=== PATIENT | female | born 1970 | race Caucasian/White ===

== ENCOUNTER 2016-05-12 21:26 | Emergency (ER) | payer MEDICARE, OTHER ==
--- NOTE | ~2016-05-12 | EKG ---
PATIENT: NORY JACINTO UNIT #: [id number] Ventricular Rate: 84 BPM Atrial Rate: 84 BPM P-R Interval: 138 ms QRS Duration: 86 ms Q-T Interval: 400 ms QTC Calculation(Bezet): 472 ms P [place]: 27 degrees Calculated R [place]: -5 degrees Calculated T [place]: -11 degrees Diagnosis Line: Normal sinus rhythm Diagnosis Line: T wave abnormality, consider anterior ischemia Diagnosis Line: Prolonged QT Diagnosis Line: Abnormal ECG Diagnosis Line: When compared with ECG of 18-MAR-2016 06:05, Diagnosis Line: No significant change was found Diagnosis Line: Confirmed by MARCO ANTONIO RODRÍGUEZ MD ([id number]) on Diagnosis Line: 05/14/2016 4:05:42 PM INTERPRETING MD: MARCOS YOUSSEF
--- NOTE | ~2016-05-12 | CR72 ---
[facility] A Service of [facility] & [facility] RADIOLOGY TEXT RESULTS PATIENT: NORY JACINTO LOCATION: [facility] : 66 UNIT #: [id number] AGE: [address]: Vipul Yusuf MD SEX: F ORDER DR: [id number] [facility] [address] [place], [place] [address] [id number] E MR#: [id number] Acc #: [id number] NAME: NORY JACINTO. : 1970 SEX: F STUDY DATE/TIME: 05/12/2016 21:07 UNIT: [facility] ROOM: STUDY DESCRIPTION: CR Chest Single View Portable Attending Physician: Vipul Yusuf M.D. Ordering Physician: Vipul Yusuf M.D. Primary Care Physician: Shwetha Lai M.D. MEDICAL IMAGING REPORT This report is preliminary unless electronic signature is present EXAM Portable chest 05/12/2016 HISTORY Shortness of air and fever and cough since yesterday. FINDINGS Cardiac size and pulmonary vascularity are within normal limits. Sternotomy with mediastinal clips. No airspace infiltrates or effusions. Mild hyperinflation of both lungs. IMPRESSION No acute findings and no active disease. Prior cardiac surgery. Dictated by... Darci Guillaume M.D. THIS IS AN ELECTRONICALLY VERIFIED REPORT Darci Guillaume M.D. at 05/13/2016 2:20 PM ARIN/clementine TD: 05/13/2016 11:03 JOB #: [id number] MEDICAL IMAGING REPORT COPY
[2016-05-12 21:02] LABS: INFLUENZA A POS (NEG); INFLUENZA B NEG (NEG)
[2016-05-12 21:05] LABS: POC - CKMB <1.0 ng/mL (0.0-7.9); POC - TROPONIN <0.05 ng/mL (<=0.05)
[2016-05-12 21:05] LABS: BASOPHIL% 0.4 % (0-2.5); EOSINOPHIL% 0.7 % (0.0-7.0); HEMATOCRIT 35.3 % (35.0-45.0); HEMOGLOBIN 11.7 gm/dL (12.0-16.0); LYMPHOCYTE# 1.6 X10e3 (1.0-3.5); LYMPHOCYTE% 28.9 % (17.0-45.0); MEAN CELL VOLUME 92.7 FL (83-96); MEAN CORPUSCULAR HEMOGLOBIN 30.6 PG (28-34); MEAN PLATELET VOLUME 7.7 FL (6.5-11.5); MONOCYTE# 1.3 X10e3 (0-1.0); MONOCYTE% 23.1 % (3.0-12.0); NEUTROPHIL# 2.6 X10e3 (1.5-7.1); NEUTROPHIL% 46.9 % (40-75); PLATELET COUNT 207 X10e3 (140-420); RED CELL DISTRIBUTION WIDTH 15.8 % (11.0-15.5); WHITE BLOOD COUNT 5.6 X10e3 (4.0-10.5)
[2016-05-12 21:06] LABS: DIFF IND YES
[2016-05-12 21:11] LABS: PLATELET ESTIMATE NORMAL (NORMAL)
[2016-05-12 21:12] LABS: RBC NORMAL YES
[~2016-05-12 21:26] MED LIST: ACETAMINOPHEN650 M4 PO; ACID REDUCER150 MG PO; ALBUTEROL 0.5ML INH; ALBUTEROL17 GM INH; AMLODIPINE BES2.5 MG PO; ASPIRIN EC81 M1 PO; ASPIRIN PO; ASPIRIN81 M2 PO; ASPIRIN81 MG PO; ATROVENT HFA12.9 G1 IH; AZITHROMYCIN250 MG PO; BAYER ASPIRIN325 M1 PO; BAYER CHEWABLE81 MG PO; BENADRYL; BENZONATATE PO; BRISDELLE7.5 MG PO; CARVEDILOL3.125 MG PO; CHEWABLE ASPIRI81 MG PO; CLOPIDOGREL BIS75 MG PO; CLOPIDOGREL75 MG PO; DESYREL150 M1 PO; DIAZEPAM PO; DIAZEPAM2 MG PO; DICYCLOMINE HCL20 MG PO; DOXYCYCLINE MO100 MG PO; EFFEXOR XR150 MG PO; EFFEXOR-XR150 MG PO; EFFEXOR100 MG PO; EFFEXOR50 MG PO; FISH OIL 1,001000 M1 PO; FISH OIL300 MG PO; GABAPENTIN300 MG PO; GLUCOPHAGE500 M1 PO; GLUCOTROL PO; HYDROCODON-ACE1 EAC7 PO; IMDUR PO; KETOPROFEN PO; KLONOPIN0.5 MG PO; LANSOPRAZOLE15 MG PO; LIORESAL10 MG PO; LIPITOR20 MG PO; LISINOPRIL10 MG PO; LISINOPRIL2.5 MG PO; LISINOPRIL20 MG PO; LISINOPRIL5 MG PO; LOPRESSOR PO; LYRICA100 MG PO; LYRICA50 MG PO; MEDI-MECLIZINE25 M1 PO; MEDROL4 MG/DOSE- PO; MELATONIN5 M1 PO; MELOXICAM15 MG PO; METFORMIN HCL500 M1 PO; METOPROLOL SUCC50 MG PO; METOPROLOL TAR25 MG PO; METOPROLOL TART25 MG PO; MOBIC PO; MUCUS RELIEF C400 MG PO; NEURONTIN300 MG PO; NITROGLYCERIN0.4 MG SL; NITROGLYGERIN0.4 MG SL; NITROSTAT0.4 MG SL; NTG 0.4 MG/0.4 MG/M1 SL; OMEGA 3 FISH OI1 CAP PO; OMEGA-3 + D SO1 EACH PO; OXYCODON HCL-AP1 TA2 PO; OXYCODON-ACETA1 EAC1 PO; OXYCODONE HCL10 MG PO; OXYCODONE-APAP1 EAC5 PO; PANTOPRAZOLE SO40 MG PO; PERCOCET 7.5-31 EACH PO; PLAVIX PO; PRAVACHOL20 MG PO; PRAVASTATIN SOD20 MG PO; PREMARIN VAG CR45 GM MC; PREVACID15 MG PO; PROVENTIL INH; PROVENTIL INH0.5 ML HHN; RANEXA500 MG PO; REFRESH5 ML OU; SERTRALINE HCL100 MG PO; SPIRIVA18 MCG INH; SYMBICORT INH; TIZANIDINE HCL4 M1 PO; TOPAMAX50 MG DOB; TOPIRAMATE100 MG PO; TOPIRAMATE200 M1 PO; TOPROL XL PO; TROKENDI XR100 MG PO; VITAL-D RX TABL1 TAB PO; VITAMIN D1000 UNI1 PO; VITAMIN D1000 UNI2 PO; VITAMIN D1000 UNIT PO; ZANTAC300 MG PO; ZESTRIL2.5 M1 PO; ZETIA PO; ZOLOFT PO; ZOLOFT100 MG PO; [UNRECOGNIZED DRUG - OTHER] OU
[2016-05-12 21:41] LABS: ALBUMIN SERUM 3.5 g/dL (3.5-5.0); ALKALINE PHOSPHATASE 146 U/L (32-92); ALT (SGPT) 61 U/L (10-40); AST (SGOT) 49 U/L (10-42); BILIRUBIN, DIRECT 0.1 mg/dL (0.0-0.2); BILIRUBIN,INDIRECT 0.3 mg/dL (0.0-0.9); BILIRUBIN,TOTAL 0.4 mg/dL (0.2-2.0); BLOOD UREA NITROGEN 9 mg/dL (9-23); BUN/CREATININE RATIO 12.85; CALCIUM SERUM 8.3 mg/dL (8.4-10.2); CARBON DIOXIDE 21 mmol/L (22-31); CHLORIDE 109 mmol/L (100-111); CREATININE SERUM 0.7 mg/dL (0.6-1.4); GLOM FILT RATE Estimated ABOVE60 mL/min (>60); GLUCOSE FASTING 111 mg/dL (70-110); POTASSIUM 3.2 mmol/L (3.5-5.1); PROTEIN TOTAL SERUM 6.6 g/dL (6.0-8.3); SODIUM 137 mmol/L (135-145)
== END 2016-05-12 22:02 | disposition home or self-care (01) ==
LOC: CED 21:26
PROVIDERS: Emergency Medicine
DX: J44.9 Chronic obstructive pulmonary disease, unspecified (principal); E87.6 Hypokalemia; J09.X2 Influenza due to identified novel influenza A virus with other respiratory manifestations; E11.9 Type 2 diabetes mellitus without complications; K21.9 Gastro-esophageal reflux disease without esophagitis; E78.5 Hyperlipidemia, unspecified; I10 Essential (primary) hypertension; I25.10 Atherosclerotic heart disease of native coronary artery without angina pectoris; Z90.49 Acquired absence of other specified parts of digestive tract; Z88.5 Allergy status to narcotic agent; Z79.899 Other long term (current) drug therapy
CPT/HCPCS: 36415; 71010; 80048; 80076; 82553; 84484; 85025; 87804; 93005; 94640; 96361; 96374; 96375; 99284; J2405; J2765; J2930

== ENCOUNTER → 2016-06-04 | Outpatient (CLI) | payer MEDICARE, OTHER ==
[~2016-06-04] MED LIST changes: +BELSOMRA10 MG PO; +COREG3.125 MG PO; +EZETIMIBE10 MG PO; +FORTAMET500 MG PO; +GABAPENTIN300 M2 PO; +GLUCOPHAGE500 MG PO; +HYDROCODON-ACE1 EAC5 PO; +ISOSORBIDE DINI30 MG PO; +ISOSORBIDE MONO30 M1 PO; +KEPPRA500 M2 PO; +NORVASC2.5 MG PO; +OMEGA 3 1,0001 EACH PO; +QUDEXY XR100 MG PO; +REFRESH OPTIVE1 EACH OU; +TRAMADOL HCL50 M1 PO; +TROKENDI XR200 MG PO; +VENLAFAXINE HC225 MG PO; +YUVAFEM10 MCG; +YUVAFEM10 MCG VAG
--- NOTE | ~2016-06-04 | MY11 ---
[facility] A Service of [facility] RADIOLOGY TEXT RESULTS PATIENT: NORY JACINTO LOCATION: [facility] : 66 UNIT #: [id number] AGE: [address]: Shwetha Lai MD SEX: F ORDER DR: [id number] [facility] [address] [place], [place] [address] [id number] O MR#: [id number] Acc #: [id number] NAME: NORY JACINTO. : 1970 SEX: F STUDY DATE/TIME: 06/04/2016 12:34 UNIT: [facility] ROOM: STUDY DESCRIPTION: MY Mammogram Screening Dig Jose Attending Physician: Shwetha Lai M.D. Referring Physician: Shwetha Lai M.D. Ordering Physician: Shwetha Lai M.D. Primary Care Physician: Shwetha Lai M.D. MEDICAL IMAGING REPORT This report is preliminary unless electronic signature is present EXAM Digital screening mammogram 06/04/2016, [facility] HISTORY 45-year-old woman no risk elevation. Annual screen. COMPARISON 12/13/2013 with a followup left breast 01/27/2014 and 08/15/2014. Bilateral diagnostic mammogram 04/21/2015. FINDINGS Digital imaging of each breast was completed utilizing a two-view examination of each breast in craniocaudal and mediolateral-oblique projections. Review and interpretation of digital mammograms include a second review in conjunction with FDA-approved CAD device. There is a normal parenchymal presentation bilaterally consistent with the patient's age. There are no breast masses imaged and no parenchymal asymmetry is visualized. There are no suspicious microcalcifications and I see no focal architectural disturbance. IMPRESSION Negative screening digital mammogram. One-year followup recommended. Patients over the age of 40 are entered into a reminder system with target due date for the next mammogram. A result letter will also be sent to the patient. BIRADS: 1 Negative Dictated by... Ollie Warren M.D. [facility] A Service of [facility] RADIOLOGY TEXT RESULTS PATIENT: NORY JACINTO LOCATION: [facility] : 66 UNIT #: [id number] AGE: [address]: Shwetha Lai MD SEX: F ORDER DR: THIS IS AN ELECTRONICALLY VERIFIED REPORT Ollie Warren M.D. at 06/04/2016 3:01 PM KRYSTINA/rico TD: 06/04/2016 14:37 JOB #: [id number] MEDICAL IMAGING REPORT Page 1 of 1 COPY
== END | disposition home or self-care (01) ==
LOC: CWCC 11:58
DX: Z12.31 Encounter for screening mammogram for malignant neoplasm of breast (principal)
CPT/HCPCS: G0202

== ENCOUNTER 2016-07-01 11:18 | Emergency (ER) | payer MEDICARE, OTHER ==
[2016-07-01 10:30] LABS: BASOPHIL# 0.1 X10e3 (0-0.3); BASOPHIL% 0.5 % (0-2.5); EOSINOPHIL# 0.3 X10e3 (0-0.7); EOSINOPHIL% 2.8 % (0.0-7.0); HEMATOCRIT 40.2 % (35.0-45.0); LYMPHOCYTE# 4.1 X10e3 (1.0-3.5); LYMPHOCYTE% 37.5 % (17.0-45.0); MEAN CELL VOLUME 92.5 FL (83-96); MEAN CORPUSCULAR HEMOGLOBIN 29.9 PG (28-34); MEAN CORPUSCULAR HGB CONC 32.3 g/dL (30-36); MEAN PLATELET VOLUME 8.1 FL (6.5-11.5); MONOCYTE# 1.2 X10e3 (0-1.0); MONOCYTE% 10.7 % (3.0-12.0); NEUTROPHIL# 5.3 X10e3 (1.5-7.1); NEUTROPHIL% 48.5 % (40-75); PLATELET COUNT 254 X10e3 (140-420); RED BLOOD COUNT 4.34 X10e (3.90-5.30); RED CELL DISTRIBUTION WIDTH 15.2 % (11.0-15.5)
[2016-07-01 10:45] LABS: DIFF IND NO
[2016-07-01 10:53] LABS: BLOOD UREA NITROGEN 13 mg/dL (9-23); BUN/CREATININE RATIO 16.25; CALCIUM SERUM 8.9 mg/dL (8.4-10.2); CARBON DIOXIDE 25 mmol/L (22-31); CHLORIDE 108 mmol/L (100-111); CREATININE SERUM 0.8 mg/dL (0.6-1.4); GLOM FILT RATE Estimated 87.9 mL/min (>60); GLUCOSE FASTING 94 mg/dL (70-110); POTASSIUM 4.3 mmol/L (3.5-5.1); SODIUM 140 mmol/L (135-145)
[2016-07-01 10:54] LABS: ALCOHOL BLOOD <5 mg/dL (0)
[~2016-07-01 11:18] MED LIST changes: -BELSOMRA10 MG PO; -COREG3.125 MG PO; -EZETIMIBE10 MG PO; -FORTAMET500 MG PO; -GABAPENTIN300 M2 PO; -GLUCOPHAGE500 MG PO; -HYDROCODON-ACE1 EAC5 PO; -ISOSORBIDE DINI30 MG PO; -ISOSORBIDE MONO30 M1 PO; -KEPPRA500 M2 PO; -NORVASC2.5 MG PO; -OMEGA 3 1,0001 EACH PO; -QUDEXY XR100 MG PO; -REFRESH OPTIVE1 EACH OU; -TRAMADOL HCL50 M1 PO; -TROKENDI XR200 MG PO; -VENLAFAXINE HC225 MG PO; -YUVAFEM10 MCG; -YUVAFEM10 MCG VAG
[2016-07-01 11:22] LABS: AMPHETAMINE NEG (NEG); BARBITURATES NEG (NEG); BENZODIAZEPINES POS (NEG); COCAINE NEG (NEG); MARIJUANA NEG (NEG); OPIATES NEG (NEG); TRICYCLIC ANTIDEPRESSANTS NEG (NEG); U METHADONE NEG (NEG)
[2016-07-03] MEDS ORDERED: TRAMADOL HCL50 M1 PO (10:18)
[2016-07-03] MEDS ORDERED: YUVAFEM10 MCG (10:19)
== END 2016-07-06 07:05 | disposition home or self-care (01) ==
LOC: CED 11:18
PROVIDERS: Emergency Medicine
DX: R56.9 Unspecified convulsions (principal); E11.9 Type 2 diabetes mellitus without complications; I25.10 Atherosclerotic heart disease of native coronary artery without angina pectoris; Z88.0 Allergy status to penicillin; Z79.899 Other long term (current) drug therapy
CPT/HCPCS: 36415; 80048; 80307; 82947; 85025; 99283; G0480

== ENCOUNTER → 2016-07-03 | Day surgery (SDC) | payer MEDICARE, OTHER ==
[~2016-07-03] MED LIST changes: +BELSOMRA10 MG PO; +COREG3.125 MG PO; +EZETIMIBE10 MG PO; +FORTAMET500 MG PO; +GABAPENTIN300 M2 PO; +GLUCOPHAGE500 MG PO; +HYDROCODON-ACE1 EAC5 PO; +ISOSORBIDE DINI30 MG PO; +ISOSORBIDE MONO30 M1 PO; +KEPPRA500 M2 PO; +NORVASC2.5 MG PO; +OMEGA 3 1,0001 EACH PO; +QUDEXY XR100 MG PO; +REFRESH OPTIVE1 EACH OU; +TRAMADOL HCL50 M1 PO; +TROKENDI XR200 MG PO; +VENLAFAXINE HC225 MG PO; +YUVAFEM10 MCG; +YUVAFEM10 MCG VAG
--- NOTE | ~2016-07-03 | OR ---
Unit #: [id number] #: [id number] Patient: NORY JACINTO [id number] [address] [id number] O MR#: [id number] NAME: NORY JACINTO. ROOM: Date of Procedure: 07/03/2016 Admission Date: 07/03/2016 Surgeon: Kranthi Garces M.D. : 1970 Attending Physician: Kranthi Garces M.D. Referring Physician: Kranthi Garces M.D. Primary Care Physician: Shwetha Wallace M.D. OPERATIVE REPORT JOB NOTE: CC: DR. WALLACE PROCEDURE PERFORMED Esophagogastroduodenoscopy with balloon dilatation. INDICATIONS FOR PROCEDURE The patient with dysphagia, history of esophageal rings dilated last year, now with recurrent symptoms. MEDICATIONS Monitored anesthesia. POSTOPERATIVE FINDINGS 1. 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 Dilation carried out with a balloon to 20 mm. 2. 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 3. Normal stomach. 4. Normal duodenum and distal duodenum. PLAN Continue PPI therapy. Repeat dilation based on symptoms. May try muscle relaxants. DESCRIPTION OF PROCEDURE The patient was explained of the procedure, risks, and benefits along with risks and benefits of anesthesia. She was brought to the endoscopy room. Propofol anesthesia was given. Bite block was placed. The scope was passed down the mouth into the esophagus, stomach, duodenum, and distal duodenum. Findings as described. Dilation carried out successfully. Gently, the scope was pulled out. She tolerated it well. Dictated by... Manny Baldwin/alejandra TD: 07/03/2016 23:56 JOB #: [id number] Unit #: [id number] #: [id number] Patient: NORY JACINTO OPERATIVE REPORT Page 1 of 1 X Kranthi Garces MD X PROCEDURE OPERATIVE NOTE
== END | disposition home or self-care (01) ==
LOC: COPS 08:56
DX: K22.2 Esophageal obstruction (principal); I85.00 Esophageal varices without bleeding; E11.9 Type 2 diabetes mellitus without complications
CPT/HCPCS: 82947

== ENCOUNTER → 2016-07-26 | Outpatient (CLI) | payer MEDICARE, OTHER ==
--- NOTE | ~2016-07-26 | MR122 ---
[facility] A Service of [facility] & [facility] RADIOLOGY TEXT RESULTS PATIENT: NORY JACINTO [facility] UNIT #: [id number] AGE: [address]: Theo Mathur II, MD SEX: F ORDER DR: [id number] [facility] [address] [place], [place] [address] [id number] O MR#: [id number] Acc #: [id number] NAME: NORY JACINTO : 1970 SEX: F STUDY DATE/TIME: 07/26/2016 8:50 UNIT: [facility] ROOM: STUDY DESCRIPTION: MR MRA Head Wo Contrast Attending Physician: Theo Mathur II., M.D. Referring Physician: Theo Mathur II., M.D. Ordering Physician: Theo Mathur II., M.D. Primary Care Physician: Shwetha Lai M.D. MRI CENTER REPORT This report is preliminary unless electronic signature is present. EXAM MR angiogram intracranial HISTORY Vision loss. Visual disturbance for a year, getting worse. Abnormal exam per patient in May. Numbness and tingling all over body a week ago. Chronic headache. FINDINGS MR angiography performed kashia of Rey vasculature without contrast. There is no previous. There is no intracranial vascular cutoff. Some irregularity of signal intensity is noted which could be real or artifactual. This includes some irregular signal loss in particular in the right A1 vessel and in the proximal left A2. Some irregularity in the proximal posterior cerebral artery distribution. Again, this could be real or artifactual. If real, this could be a manifestation with some intracranial atherosclerotic disease or vasculitis. If more information is needed for management purposes, this is best pursued with a CT angiogram. No intracranial aneurysm is suspected allowing for the technical limitation of MR angiography for assessment for small intracranial aneurysms. There is an anterior communicating artery present. Neither posterior communicator is definitely seen. IMPRESSION There are areas of irregular intracranial signal loss with details provided above. This includes the right A1 and left A2 vessels for example. This could be real or artifactual. If real, main consideration would be intracranial atherosclerotic disease versus vasculitis. If it would alter management, finding is best pursued with a CT angiogram to see if it is reproducible. There is no intracranial vascular cutoff and there [facility] A Service of [facility] & [facility] RADIOLOGY TEXT RESULTS PATIENT: NORY JACINTO LOCATION: [facility] : 66 UNIT #: [id number] AGE: [address]: Theo Mathur II, MD SEX: F ORDER DR: is no suspicion for a intracranial aneurysm on MR angiography. Dictated by... Rubia Ochoa M.D. THIS IS AN ELECTRONICALLY VERIFIED REPORT Rubia Ochoa M.D. at 07/29/2016 5:30 PM Jeremias TD: 07/29/2016 11:30 JOB #: [id number] MRI CENTER REPORT Page 1 of 1 COPY
--- NOTE | ~2016-07-26 | MR148 ---
[facility] A Service of [facility] & [facility] RADIOLOGY TEXT RESULTS PATIENT: NORY JACINTO LOCATION: [facility] : 66 UNIT #: [id number] AGE: [address]: Theo Mathur II, MD SEX: F ORDER DR: [id number] [facility] [address] [place], [place] [address] [id number] O MR#: [id number] Acc #: [id number] NAME: NORY JACINTO. : 1970 SEX: F STUDY DATE/TIME: 07/26/2016 8:49 UNIT: [facility] ROOM: STUDY DESCRIPTION: MR Orbit Face and or Neck WWo Attending Physician: Theo Mathur II., M.D. Referring Physician: Theo Mathur II., M.D. Ordering Physician: Theo Mathur II., M.D. Primary Care Physician: Shwetha Lai M.D. MRI CENTER REPORT This report is preliminary unless electronic signature is present. EXAM MRI of the orbits HISTORY: Visual loss, visual loss for a year and worsening. Abnormal examination in May per patient. Otherwise the type of visual disturbances not specified. COMMENT MRI of the orbits performed prior to and following intravenous administration of 15 mL MultiHance. Study is limited by motion despite use of motion limiting sequences. There is a separate brain MRI dictation. The globes are intact, lenses are located. Superior ophthalmic veins are symmetric. Lacrimal glands are unremarkable. Extraocular muscles are symmetric unremarkable. The retrobulbar fat is preserved. No gross pathologic enhancement allowing for the motion. Signal intensity of the optic nerves tracts and chiasm grossly within normal limits again allowing for the motion. Cavernous sinus region unremarkable. IMPRESSION 1. Study is significantly motion limited. Allowing for this no abnormality is appreciated. Please correlate further with the type of visual disturbance. Dictated by... Rubia Ochoa M.D. THIS IS AN ELECTRONICALLY VERIFIED REPORT Rubia Ochoa M.D. at 07/29/2016 5:29 PM LEVY/leeanna STS. [facility] A Service of [facility] & [facility] RADIOLOGY TEXT RESULTS PATIENT: NORY JACINTO LOCATION: [facility] : 66 UNIT #: [id number] AGE: [address]: Theo Mathur II, MD SEX: F ORDER DR: TD: 07/29/2016 10:35 JOB #: [id number] MRI CENTER REPORT Page 1 of 1 COPY
--- NOTE | ~2016-07-26 | MR134 ---
[facility] A Service of [facility] RADIOLOGY TEXT RESULTS PATIENT: NORY JACINTO LOCATION: [facility] : 66 UNIT #: [id number] AGE: [address]: Theo Mathur II, MD SEX: F ORDER DR: [id number] [place] [id number] [facility] [place], [place] [address] [id number] O MR#: [id number] Acc #: [id number] NAME: NORY JACINTO : 1970 SEX: F STUDY DATE/TIME: 07/26/2016 9:03 UNIT: [facility] ROOM: STUDY DESCRIPTION: MR MRA Neck Wo Contrast Attending Physician: Theo Mathur II., M.D. Referring Physician: Theo Mathur II., M.D. Ordering Physician: Theo Mathur II., M.D. Primary Care Physician: Shwetha Lai M.D. MRI CENTER REPORT This report is preliminary unless electronic signature is present. EXAM MR angiogram neck vessels. HISTORY Vision loss worsening over a year, episode of numbness and tingling whole body last week. Chronic headaches. TECHNIQUE MR angiography performed neck vessels without contrast. FINDINGS Study is motion limited. Allowing for this, there is probably not hemodynamically-significant narrowing at either carotid bifurcation. Both vertebral arteries are patent. Visualized portions left dominant. IMPRESSION There is significant motion limitation of the study. Allowing for this, there does not appear to be hemodynamically-significant narrowing at either carotid bifurcation. Both vertebral arteries patent visualized portions. Dictated by... Rubia Ochoa M.D. THIS IS AN ELECTRONICALLY VERIFIED REPORT Rubia Ochoa M.D. at 07/29/2016 5:30 PM LEVY/tanja TD: 07/29/2016 12:05 JOB #: [id number] [facility] A Service of [facility] / [facility] RADIOLOGY TEXT RESULTS PATIENT: NORY JACINTO LOCATION: [facility] : 66 UNIT #: [id number] AGE: [address]: Theo Mathur II, MD SEX: F ORDER DR: MRI CENTER REPORT Page 1 of 1 COPY
--- NOTE | ~2016-07-26 | MR17 ---
[facility] A Service of [facility] & [facility] RADIOLOGY TEXT RESULTS PATIENT: NORY JACINTO LOCATION: [facility] : 66 UNIT #: [id number] AGE: [address]: Theo Mathur II, MD SEX: F ORDER DR: [id number] [facility] [address] [place], [place] [address] [id number] O MR#: [id number] Acc #: [id number] NAME: NORY JACINTO. : 1970 SEX: F STUDY DATE/TIME: 07/26/2016 7:44 UNIT: [facility] ROOM: STUDY DESCRIPTION: MR Brain WWo Contrast Attending Physician: Theo Mathur II., M.D. Referring Physician: Theo Mathur II., M.D. Ordering Physician: Theo Mathur II., M.D. Primary Care Physician: Shwetha Lai M.D. MRI CENTER REPORT This report is preliminary unless electronic signature is present. EXAM MRI of the brain with and without. HISTORY Vision loss. Decreased vision for 1 year with worsening and chronic headaches, numbness and tingling all over her body a week ago. Abnormal eye examination in May. Vision changes in both eyes. History of cervical cancer. COMMENT MRI of the brain was performed prior to and following intravenous administration of 15 mL of MultiHance. There is a previous brain MRI from 07/05/2014. There is a separate dictation of the orbits. There is no evidence for a recent ischemic insult on the diffusion series. Incidental note is made of a partially empty sella. 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 There is no extraaxial fluid collection. The major intracranial flow voids are maintained. The mastoid air cells are clear. The paranasal sinuses are clear. Study is motion limited, despite use of motion limiting sequences. Allowing for this, there is mild white matter signal abnormality, most apparent in the periventricular white matter, probably essentially within the range of expected for age group, also probably not significantly changed from 2015 exam. There is no intracranial mass effect. Following contrast administration, there is no pathologic intracranial enhancement. It would be helpful to know the type of visual disturbance in this patient. If there is concern for pseudotumor cerebri, I would suggest CSF sampling with the measurement of opening pressure. [facility] A Service of [facility] & [facility] RADIOLOGY TEXT RESULTS PATIENT: NORY JACINTO LOCATION: [facility] : 66 UNIT #: [id number] AGE: [address]: Theo Mathur II, MD SEX: F ORDER DR: IMPRESSION 1. Some motion limitation of the study. Allowing for this, probably no significant interval change in mild white matter disease, essentially within the range expected for age group. There is no intracranial mass lesion, mass effect, or suspicion for a recent ischemic insult. 2. There is an incidentally noted partially empty sella. This may be of no further significance. It is a secondary sign that can be associated with increased intracranial pressure. If the patient's visual disturbance is suggestive of pseudotumor cerebri, I would suggest measurement of CSF opening pressure. Please correlate with the type of visual disturbance present. 3. 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 Dictated by... Rubia Ochoa M.D. THIS IS AN ELECTRONICALLY VERIFIED REPORT Rubia Ochoa M.D. at 07/29/2016 5:29 PM LEVY/tanja TD: 07/29/2016 10:09 JOB #: [id number] MRI CENTER REPORT Page 1 of 1 COPY
== END | disposition home or self-care (01) ==
LOC: CMRI 06:46
DX: H54.7 Unspecified visual loss (principal); R93.0 Abnormal findings on diagnostic imaging of skull and head, not elsewhere classified
CPT/HCPCS: 70543; 70544; 70547; 70553; A9577

== ENCOUNTER 2016-08-08 10:55 | Emergency (ER) | payer MEDICARE, OTHER ==
--- NOTE | ~2016-08-08 | CR72 ---
[facility] A Service of [facility] & [facility] RADIOLOGY TEXT RESULTS PATIENT: NORY JACINTO LOCATION: [facility] : 66 UNIT #: [id number] AGE: [address]: Gallo Mukherjee MD SEX: F ORDER DR: [id number] [facility] [address] [place], [place] [address] [id number] E MR#: [id number] Acc #: [id number] NAME: NORY JACINTO. : 1970 SEX: F STUDY DATE/TIME: 08/08/2016 13:44 UNIT: [facility] ROOM: STUDY DESCRIPTION: CR Chest Single View Portable Attending Physician: Gallo Mukherjee M.D. Ordering Physician: Gallo Mukherjee M.D. Primary Care Physician: Shwetha Lai M.D. MEDICAL IMAGING REPORT This report is preliminary unless electronic signature is present EXAM Portable chest 08/08 INDICATIONS Syncope and shortness of air today. Seizure tonight. Former smoker. TECHNIQUE/COMPARISON AP portable chest is compared with 05/12/2016 FINDINGS There is mild cardiomegaly status post CABG. Lungs are clear. No pneumothorax is seen. IMPRESSION Mild cardiomegaly with CABG change. No active disease. Dictated by... Jd Thakur Jr., M.D. THIS IS AN ELECTRONICALLY VERIFIED REPORT Jd Thakur Jr., M.D. at 08/09/2016 6:10 AM RLK/rico TD: 08/08/2016 16:28 JOB #: [id number] MEDICAL IMAGING REPORT Page 1 of 1 COPY
[~2016-08-08 10:55] MED LIST changes: -BELSOMRA10 MG PO; -COREG3.125 MG PO; -EZETIMIBE10 MG PO; -FORTAMET500 MG PO; -GABAPENTIN300 M2 PO; -GLUCOPHAGE500 MG PO; -HYDROCODON-ACE1 EAC5 PO; -ISOSORBIDE DINI30 MG PO; -ISOSORBIDE MONO30 M1 PO; -KEPPRA500 M2 PO; -NORVASC2.5 MG PO; -OMEGA 3 1,0001 EACH PO; -QUDEXY XR100 MG PO; -REFRESH OPTIVE1 EACH OU; -TROKENDI XR200 MG PO; -VENLAFAXINE HC225 MG PO; -YUVAFEM10 MCG VAG
[2016-08-08 12:34] LABS: BASOPHIL% 0.4 % (0-2.5); EOSINOPHIL# 0.2 X10e3 (0-0.7); EOSINOPHIL% 2.2 % (0.0-7.0); HEMATOCRIT 37.6 % (35.0-45.0); HEMOGLOBIN 12.2 gm/dL (12.0-16.0); LYMPHOCYTE% 43.2 % (17.0-45.0); MEAN CELL VOLUME 92.3 FL (83-96); MEAN CORPUSCULAR HGB CONC 32.6 g/dL (30-36); MEAN PLATELET VOLUME 8.6 FL (6.5-11.5); MONOCYTE% 10.4 % (3.0-12.0); NEUTROPHIL% 43.8 % (40-75); PLATELET COUNT 248 X10e3 (140-420); RED BLOOD COUNT 4.08 X10e (3.90-5.30); RED CELL DISTRIBUTION WIDTH 15.9 % (11.0-15.5); WHITE BLOOD COUNT 9.2 X10e3 (4.0-10.5)
[2016-08-08 12:37] LABS: DIFF IND NO
[2016-08-08 13:04] LABS: ALBUMIN SERUM 3.8 g/dL (3.5-5.0); BILIRUBIN, DIRECT 0.1 mg/dL (0.0-0.2); BILIRUBIN,TOTAL 0.1 mg/dL (0.2-2.0); BUN/CREATININE RATIO 17.14; CREATININE SERUM 0.7 mg/dL (0.6-1.4); GLOM FILT RATE Estimated 103.2 mL/min (>60); POTASSIUM 4.1 mmol/L (3.5-5.1); PROTEIN TOTAL SERUM 6.6 g/dL (6.0-8.3)
[2016-08-08] MEDS ORDERED: GABAPENTIN300 M2 PO (13:16)
[2016-08-08] MEDS ORDERED: MELOXICAM15 MG PO (13:17)
[2016-08-08] MEDS ORDERED: OMEGA 3 1,0001 EACH PO (13:17)
[2016-08-08] MEDS ORDERED: DIAZEPAM2 MG PO (13:18)
[2016-08-08] MEDS ORDERED: QUDEXY XR100 MG PO (13:18)
[2016-08-08] MEDS ORDERED: VITAMIN D1000 UNIT PO (13:19)
[2016-08-08] MEDS ORDERED: COREG3.125 MG PO (13:19)
[2016-08-08] MEDS ORDERED: TROKENDI XR200 MG PO (13:19)
[2016-08-08] MEDS ORDERED: VENLAFAXINE HC225 MG PO (13:20)
[2016-08-08] MEDS ORDERED: CLOPIDOGREL75 MG PO (13:20)
[2016-08-08] MEDS ORDERED: ISOSORBIDE DINI30 MG PO (13:20)
[2016-08-08] MEDS ORDERED: PANTOPRAZOLE SO40 MG PO (13:21)
[2016-08-08] MEDS ORDERED: LIPITOR20 MG PO (13:21)
[2016-08-08] MEDS ORDERED: EZETIMIBE10 MG PO (13:21)
[2016-08-08] MEDS ORDERED: BELSOMRA10 MG PO (13:22)
[2016-08-08] MEDS ORDERED: SYMBICORT INH (13:22)
[2016-08-08] MEDS ORDERED: FORTAMET500 MG PO (13:22)
[2016-08-08] MEDS ORDERED: HYDROCODON-ACE1 EAC5 PO (13:23)
[2016-08-08 13:34] LABS: URINE SOURCE CLEAN CATCH
[2016-08-08 13:45] LABS: URINE APPEARANCE CLEAR; URINE BILIRUBIN NEG (NEG); URINE BLOOD NEG (NEG); URINE COLOR YELLOW; URINE GLUCOSE NEG (NEG); URINE KETONE NEG (NEG); URINE LEUKOCYTE ESTERASE 1+ (NEG); URINE NITRATE NEG (NEG); URINE PROTEIN NEG (NEG); URINE SPECIFIC GRAVITY 1.007 (1.003-1.035)
[2016-08-08 13:51] LABS: CULTURE INDICATED? YES; U HYALINE CASTS AUWI 0-2 /[LPF]; URBCS1 AUWI 0-2 /[HPF] (0-2); URINE BACTERIA AUWI 2+ (NEGATIVE); URINE SQUAMOUS EPITHELIAL CELL FEW /[HPF]
[2016-08-08 13:57] LABS: AMPHETAMINE NEG (NEG); BARBITURATES NEG (NEG); BENZODIAZEPINES POS (NEG); COCAINE NEG (NEG); MARIJUANA NEG (NEG); OPIATES POS (NEG); TRICYCLIC ANTIDEPRESSANTS NEG (NEG); U METHADONE NEG (NEG)
== END 2016-08-08 15:00 | disposition home or self-care (01) ==
LOC: CED 10:55
PROVIDERS: Emergency Medicine
DX: G40.909 Epilepsy, unspecified, not intractable, without status epilepticus (principal); N39.0 Urinary tract infection, site not specified; I25.10 Atherosclerotic heart disease of native coronary artery without angina pectoris; I10 Essential (primary) hypertension; Z88.1 Allergy status to other antibiotic agents; J44.9 Chronic obstructive pulmonary disease, unspecified; Z88.0 Allergy status to penicillin
CPT/HCPCS: 36415; 71010; 80048; 80076; 80307; 81003; 82947; 84703; 85025; 87086; 96365; 99284; J1953

== ENCOUNTER 2016-08-12 10:25 | Emergency (ER) | payer MEDICARE, OTHER ==
[~2016-08-12 10:25] MED LIST changes: +BELSOMRA10 MG PO; +COREG3.125 MG PO; +EZETIMIBE10 MG PO; +FORTAMET500 MG PO; +GABAPENTIN300 M2 PO; +HYDROCODON-ACE1 EAC5 PO; +ISOSORBIDE DINI30 MG PO; +OMEGA 3 1,0001 EACH PO; +QUDEXY XR100 MG PO; +TROKENDI XR200 MG PO; +VENLAFAXINE HC225 MG PO
[2016-08-12] MEDS ORDERED: KEPPRA500 M2 PO (10:31)
== END 2016-08-12 13:40 | disposition home or self-care (01) ==
LOC: CED 10:25
DX: G40.909 Epilepsy, unspecified, not intractable, without status epilepticus (principal); E11.9 Type 2 diabetes mellitus without complications; I10 Essential (primary) hypertension; Z88.1 Allergy status to other antibiotic agents; Z90.49 Acquired absence of other specified parts of digestive tract; Z95.1 Presence of aortocoronary bypass graft; Z79.891 Long term (current) use of opiate analgesic; Z79.899 Other long term (current) drug therapy; Z79.84 Long term (current) use of oral hypoglycemic drugs
CPT/HCPCS: 99284

== ENCOUNTER → 2016-08-28 | Outpatient (CLI) | payer MEDICARE, OTHER ==
[~2016-08-28] MED LIST changes: +GLUCOPHAGE500 MG PO; +ISOSORBIDE MONO30 M1 PO; +KEPPRA500 M2 PO; +NORVASC2.5 MG PO; +REFRESH OPTIVE1 EACH OU; +YUVAFEM10 MCG VAG
--- NOTE | ~2016-08-28 | CT23 ---
[facility] A Service of [facility] & [facility] RADIOLOGY TEXT RESULTS PATIENT: NORY JACINTO [facility] : 66 UNIT #: [id number] AGE: [address]: CATHERINE RUBIO APRN SEX: F ORDER DR: [id number] [facility] [address] [place], [place] [address] [id number] O MR#: [id number] Acc #: [id number] NAME: NORY JACINTO. : 1970 SEX: F STUDY DATE/TIME: 08/28/2016 14:51 UNIT: [facility] ROOM: STUDY DESCRIPTION: CT Angio Neck Attending Physician: aCtherine Rubio Aprn Referring Physician: Catherine Rubio Aprn Ordering Physician: Catherine Rubio Aprn Primary Care Physician: Shwetha Lai M.D. MEDICAL IMAGING REPORT This report is preliminary unless electronic signature is present EXAM CT scan of the head and neck with contrast, with carotid CT angiography HISTORY Visual changes with blurred vision over the past 2-3 months. TECHNIQUE Axial imaging was obtained from the mid mediastinum to the top of the head with contrast. 100 mL of Isovue was used. CT angiography was performed with thick sliding MIPs, curved planar reformats and 3-D volumetric imaging with surface-shaded and volume-shaded display. This CT exam was performed with one or more of the following radiation dose reduction techniques: Automatic exposure control, adjustment of mA and/or kV according to patient size, and iterative reconstruction. FINDINGS Extravascular structures are remarkable for emphysema in the upper lung ortiz. The CT angiographic images show wide patency of the great vessels off the arch. In the posterior circulation, both vertebral arteries are widely patent, with the left a little more dominant than the right. The basilar artery is widely patent. In the carotid circulation, there is a tiny calcified plaque at the left bifurcation. The right bifurcation is clear. The distal carotids up through the siphons are widely patent. There is no evidence of carotid stenosis by NASCET criteria. In the intracranial circulation, there is no evidence of aneurysm, vascular malformation, or major branch vessel occlusion. IMPRESSION STS. [facility] A Service of [facility] & [facility] RADIOLOGY TEXT RESULTS PATIENT: NORY JACINTO LOCATION: [facility] : 66 UNIT #: [id number] AGE: [address]: CATHERINE RUBIO APRN SEX: F ORDER DR: Tiny calcified plaque left carotid bifurcation. No evidence of carotid stenosis by NASCET criteria. Otherwise, negative CTA. Emphysematous changes seen at the lung apices. Dictated by... Jd Suero M.D. THIS IS AN ELECTRONICALLY VERIFIED REPORT Jd Suero M.D. at 08/29/2016 6:53 PM JANET/luis alberto TD: 08/29/2016 16:20 JOB #: [id number] MEDICAL IMAGING REPORT Page 1 of 1 COPY
--- NOTE | ~2016-08-28 | CT17 ---
[facility] A Service of [facility] & [facility] RADIOLOGY TEXT RESULTS PATIENT: NORY JACINTO LOCATION: [facility] : 66 UNIT #: [id number] AGE: [address]: CATHERINE RUBIO APRN SEX: F ORDER DR: [id number] [facility] [address] [place], [place] [address] [id number] O MR#: [id number] Acc #: [id number] NAME: NORY JACINTO. : 1970 SEX: F STUDY DATE/TIME: 08/28/2016 14:51 UNIT: [facility] ROOM: STUDY DESCRIPTION: CT Angio Head Attending Physician: Catherine Rubio Aprn Referring Physician: Catherine Rubio Aprn Ordering Physician: Catherine Rubio Aprn Primary Care Physician: Shwetha Lai M.D. MEDICAL IMAGING REPORT This report is preliminary unless electronic signature is present EXAM CT scan of the head with contrast, with carotid CT angiography HISTORY Visual changes with blurred vision over the past 2-3 months. FINDINGS Please see CT ANGIO NECK report for combined text results. Dictated by... Jd Suero M.D. THIS IS AN ELECTRONICALLY VERIFIED REPORT Jd Suero M.D. at 08/29/2016 6:53 PM MELECIOF/luis alberto TD: 08/29/2016 16:23 JOB #: [id number] MEDICAL IMAGING REPORT Page 1 of 1 COPY
== END | disposition home or self-care (01) ==
LOC: CCAT 13:55
DX: H54.7 Unspecified visual loss (principal)
CPT/HCPCS: 70496; 70498; Q9967

== ENCOUNTER 2016-10-06 14:45 | Inpatient (IN) | payer MEDICARE, OTHER ==
[~2016-10-06] VITALS: Ht 149.9 cm; Wt 75.4 kg
--- NOTE | ~2016-10-06 | CO ---
Unit #: [id number] #: [id number] Patient: NORY SALAMANCA [id number] [address] [place], [place] [address] [id number] I MR#: [id number] NAME: NORY SALAMANCA ROOM: 304 Age: 46 Sex: F Admission Date: 10/06/2016 : 1970 Attending Physician: Kade Joe M.D. Primary Care Physician: Shwetha Lai M.D. Consultation Date: 10/08/2016 CONSULTATION REPORT HISTORY OF PRESENTING ILLNESS Ms. Salamanca is a 46-year-old female, known to me from previous evaluation. She was admitted yesterday with chest pain. She has significant coronary artery disease; however, Cardiology, Dr. Joe, did not think that it was related to her coronary artery disease. The patient is complaining of pain in the lower part of the chest, which has no relation to food. No nausea, vomiting, or hematemesis. She says that the pain gets somewhat worse with activity; however, it is constant mostly. She has been getting pain medications, feeling better as a result. She denies any swallowing problems. She denies any change in bowel movements. She denies any abdominal pain. She denies any bleeding. 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 She is an ex-smoker, allergies to penicillin. MEDICATIONS Include gabapentin, Mobic, Omro, Topamax, Plavix, Effexor, isosorbide, Protonix, Zetia, Lipitor, and Glucophage. She also takes estrogen and hydrocodone. REVIEW OF SYSTEMS A complete 10-point review of systems was done, which is unremarkable other than as mentioned above. PHYSICAL EXAMINATION VITAL SIGNS: Stable. Afebrile. GENERAL: No acute distress. HEENT: Pupils are equal and reactive. Sclerae are anicteric. Oral mucosa moist. NECK: No JVD. No lymphadenopathy. CHEST: Clear to auscultation with few scattered rhonchi. CARDIOVASCULAR: Regular rate and rhythm. No murmurs. ABDOMEN: Soft, nontender, and nondistended. EXTREMITIES: Without clubbing, cyanosis, or edema. NEUROLOGIC: Intact. SKIN: Warm and dry. DIAGNOSTIC STUDIES AST 28, alkaline phosphatase of 172. Hemoglobin of 12. ALT of 42. ASSESSMENT AND PLAN 1. The patient with chest pain with significant history of coronary artery disease; however, recent cardiac evaluation suggests that unlikely Unit #: [id number] #: [id number] Patient: NORY SALAMANCA to be cardiac in origin. She does have a history of diffuse esophageal spasm and gastroesophageal reflux disease and has been on chronic PPI therapy. Pain could possibly be related to esophageal spasms. She is already on calcium channel blockers and multiple psych medications. I will try baclofen for muscle relaxer for her symptoms and see if that will help also given the persistent elevation of LFTs, despite that she has not been drinking for so long, we need to rule out any biliary obstruction. She had gallbladder removed as a teenager. We will get an MRCP for evaluation of the same, that could be possibly causing the pain also. We will continue with symptomatic treatment otherwise for now. 2. Coronary artery disease. 3. Diabetes mellitus. Thank you, Dr. Joe for this interesting consult. We will follow along. Dictated by... Manny Baldwin/alejandra TD: 10/09/2016 01:51 JOB #: [id number] CONSULTATION REPORT Page 1 of 1 X Kranthi Garces MD X CONSULTATION REPORT
--- NOTE | ~2016-10-06 | CR72 ---
[facility] A Service of [facility] & [facility] RADIOLOGY TEXT RESULTS PATIENT: NORY SALAMANCA LOCATION: [facility] 304-01 : [birth year] UNIT #: [id number] AGE: [address]: Kade Joe MD SEX: F ORDER DR: [id number] [facility] [address] [facility]. [place], [place] [address] [id number] I MR#: [id number] Acc #: [id number] NAME: NORY SALAMANCA : 1970 SEX: F STUDY DATE/TIME: 10/06/2016 15:57 UNIT: [address] ROOM: [facility] STUDY DESCRIPTION: CR Chest Single View Portable Attending Physician: Kade Joe M.D. Ordering Physician: Mart Mosqueda M.D. Primary Care Physician: Shwetha Lai M.D. MEDICAL IMAGING REPORT This report is preliminary unless electronic signature is present EXAM Frontal chest 10/06/2016 INDICATIONS 46-year-old female with chest pain and shortness of air, chest pain extends into the left arm for 2 weeks. History of cervical cancer and hypertension. TECHNIQUE Frontal chest compared with 08/08/2016. FINDINGS The heart is enlarged but stable status post median sternotomy. The lungs are emphysematous. Vascularity unremarkable. There is some chronic appearing fibrosis and atelectasis in the lung bases. IMPRESSION 1. Chronic lung changes, no definite superimposed active disease. Dictated by... Dev Gomez M.D. THIS IS AN ELECTRONICALLY VERIFIED REPORT Dev Gomez M.D. at 10/07/2016 11:42 AM FAUZIA/luis alberto TD: 10/07/2016 00:02 JOB #: [id number] MEDICAL IMAGING REPORT Page 1 of 1 COPY
--- NOTE | ~2016-10-06 | MR146 ---
[facility] A Service of [facility] RADIOLOGY TEXT RESULTS PATIENT: NORY SALAMANCA LOCATION: [facility] 304-01 : [birth year] UNIT #: [id number] AGE: [address]: Kade Joe MD SEX: F ORDER DR: [id number] [facility] [address] [facility]. [place], [place] [address] [id number] I MR#: [id number] Acc #: [id number] NAME: NORY SALAMANCA : 1970 SEX: F STUDY DATE/TIME: 10/08/2016 22:16 [facility]: [facility] STUDY DESCRIPTION: MR MRCP Wo Contrast Attending Physician: Kade Joe M.D. Ordering Physician: Kranthi Garces M.D. Primary Care Physician: Shwetha Lai M.D. MRI CENTER REPORT This report is preliminary unless electronic signature is present. EXAM MRI of the abdomen, MRCP protocol no contrast, 10/08/2016 INDICATION 46-year-old female with elevated liver enzymes. History of cholecystectomy and remote history of calculus. Clinical concern for biliary obstruction. AST 28, ALT 42, narda phos 172. Left lower quadrant abdominal pain chronically for years. History of cervical cancer. TECHNIQUE Multiplanar, multisequence MRI of the abdomen was performed utilizing an MRCP protocol. No intravenous contrast was administered at the request of the ordering physician. COMPARISON STUDIES 06/15/2013 FINDINGS MRI ABDOMEN: Thick and thin slab imaging of the biliary tree was performed. Included lung bases are clear. Aorta demonstrates no aneurysm. Pancreas demonstrates no signal changes to suggest acute pancreatitis. Spleen measures about 8.0 cm craniocaudal and the liver measures about 17.4 cm craniocaudal. No evidence of pancreas divisum. Extrahepatic common bile duct measures about 8.0 mm maximum diameter and tapers distally. Pancreatic duct unremarkable. The appearance is unchanged. No evidence of choledocholithiasis or intrahepatic ductal dilatation. There is fatty infiltration of the liver. Gallbladder surgically absent. Spleen and adrenal glands are unremarkable. Signal within the liver otherwise unremarkable. Included kidneys demonstrate a 13.0 mm T2 [facility] A Service of [facility] RADIOLOGY TEXT RESULTS PATIENT: NORY SALAMANCA LOCATION: [facility] 304-01 : [birth year] UNIT #: [id number] AGE: [address]: Kade Joe MD SEX: F ORDER DR: hyperintense lesion in the lower pole left kidney, new compared to the prior study. It is radiographically occult on T1 images and the examination was performed without the benefit of intravenous contrast and therefore this lesion is indeterminate. Statistically IT likely represents a cyst. Consider initial further evaluation with a renal ultrasound. If it cannot be fully characterized with a renal ultrasound, then cross sectional imaging with and without contrast may ultimately be necessary for more definitive assessment. There is a stable tiny 4.0 mm cyst associated with the lower pole right kidney that is benign based on stability. No adenopathy. No ascites. Marrow signal unremarkable. IMPRESSION 1. Status post cholecystectomy with probable physiologic dilatation of the extrahepatic common bile duct unchanged at about 8.0 mm. No evidence of choledocholithiasis. No evidence of pancreas divisum. 2. Fatty infiltration of the liver. 3. 13.0 mm probable cyst in the lower pole left kidney new compared to the prior study and incompletely characterized for the reasons described above. Renal ultrasound recommended for initial further assessment. Dictated by... Dev Gomez M.D. THIS IS AN ELECTRONICALLY VERIFIED REPORT Dev Gomez M.D. at 10/09/2016 1:51 PM Shahab TD: 10/09/2016 08:46 JOB #: [id number] MRI CENTER REPORT Page 1 of 1 COPY
--- NOTE | ~2016-10-06 | US77 ---
[facility] A Service of [facility] & [facility] RADIOLOGY TEXT RESULTS PATIENT: NORY SALAMANCA LOCATION: [facility] 304-01 : [birth year] UNIT #: [id number] AGE: [address]: Kade Joe MD SEX: F ORDER DR: [id number] [facility] [address] [place], [place] [address] [id number] I MR#: [id number] Acc #: [id number] NAME: NORY SALAMANCA : 1970 SEX: F STUDY DATE/TIME: 10/09/2016 14:38 UNIT: [address] ROOM: [facility] STUDY DESCRIPTION: US Kidney Bilateral Complete Attending Physician: Kade Joe M.D. Ordering Physician: Kade Joe M.D. Primary Care Physician: Shwetha Lai M.D. MEDICAL IMAGING REPORT This report is preliminary unless electronic signature is present EXAM Renal ultrasound 10/09/2016 HISTORY 1.3 cm indeterminate lesion on the lower pole of the left kidney found on MRCP performed 10/08/2016. Renal ultrasound was recommended for characterization. FINDINGS Right kidney measures 10.8 cm, while the left kidney measures 10 cm in longitudinal dimensions. There is no evidence of hydronephrosis or nephrolithiasis. There is a 1.4 cm simple cyst on the lower pole of the left kidney. No solid mass lesions are identified. There is normal renal cortical echogenicity. Images of the bladder are normal. IMPRESSION 1.4 cm cyst lower pole left kidney. Otherwise, negative renal ultrasound. Dictated by... Scott Hines M.D. THIS IS AN ELECTRONICALLY VERIFIED REPORT Scott Hines M.D. at 10/10/2016 7:33 AM KRT/tariq TD: 10/09/2016 18:15 JOB #: [id number] MEDICAL IMAGING REPORT Page 1 of 1 COPY
--- NOTE | ~2016-10-06 | EKG ---
PATIENT: NORY SALAMANCA UNIT #: [id number] Ventricular Rate: 63 BPM Atrial Rate: 63 BPM P-R Interval: 134 ms QRS Duration: 86 ms Q-T Interval: 486 ms QTC Calculation(Bezet): 497 ms P [place]: 7 degrees Calculated R [place]: 0 degrees Calculated T [place]: 11 degrees Diagnosis Line: Normal sinus rhythm Diagnosis Line: T wave abnormality, consider anterior ischemia Diagnosis Line: Prolonged QT Diagnosis Line: Abnormal ECG Diagnosis Line: No previous ECGs available Diagnosis Line: Confirmed by OZIEL JOSEPH MD ([id number]) on Diagnosis Line: 10/07/2016 12:32:53 PM INTERPRETING MD: JAKE YOUSSEF
--- NOTE | ~2016-10-06 | HP ---
Unit #: [id number] #: [id number] Patient: NORY SALAMANCA [id number] [address] [place], [place] [address] [id number] I MR#: [id number] NAME: NORY SALAMANCA ROOM: 304 Age: 46 Sex: F Admission Date: 10/06/2016 : 1970 Attending Physician: Kade Joe M.D. Primary Care Physician: Shwetha Lai M.D. HISTORY AND PHYSICAL REASON FOR ADMISSION Chest pain. HISTORY OF PRESENT ILLNESS The patient is a 46-year-old white female who follows with Dr. Joe in the office for a history of a NSTEMI and CABG in 2011, Cardiolite stress test in 2013 that showed no ischemia, hypertension, hyperlipidemia, diabetes, COPD, obstructive sleep apnea where she uses a CPAP, reformed tobacco abuse, GERD and esophageal stricture. Patient came into the ER with complaints of chest pain. Patient states that she has had chest pain to the left chest anteriorly that also radiates to the left arm, for the last two weeks off and on. She states that the pain has awoken her up at night and it is worse when she gets up and walks around. Patient also reports some shortness of breath, nausea, diaphoresis, palpitations but no syncope. She also reports generalized weakness. Patient states that she has had these symptoms for the last couple of weeks but yesterday it was worse so she felt like she needed to come in and be evaluated. Patient had a cardiac cath in March of 2016 that showed the left main normal, RCA was normal, left circumflex was normal. She had an LAD that was 40% at the ostium and proximal LAD stent that was patent. Patient had a previous bypass graft in 2011 with a CASAREZ graft to the LAD and a vein graft to the marginal branch. Both were known to be occluded, therefore she subsequently had the stent placed after the failed graft. EF at that time was 45%. Patient is now re-presenting to the ER with more complaints of chest pain. Troponins thus far have been negative. An EKG shows some T-wave inversion but that is not new from her EKG that was on the chart from May. PAST MEDICAL HISTORY 1. Cardiac cath March 2016 that showed normal left main, normal RCA, normal left circumflex with LAD 40% at the ostium with a proximal LAD stent patent. CASAREZ graft to LAD and vein graft to marginal branch known to be occluded with an EF of 45%. 2. Cardiolite stress test 2013 that showed no ischemia. 3. Non-ST elevated IA with CABG x2 in 2011. 4. Hypertension. 5. Hyperlipidemia. 6. Diabetes. 7. COPD. 8. Obstructive sleep apnea, uses CPAP. 9. Reformed tobacco abuse. Unit #: [id number] #: [id number] Patient: NORY SALAMANCA 10. GERD. 11. Esophageal stricture. 12. Echo in December 2013 showed EF of 50% to 55%, trace MR and trace [place]. PAST SURGICAL HISTORY Includes: 1. CABG x2 in 2011 with subsequent stent placement secondary to graft occlusion three weeks post bypass surgery. 2. Left shoulder surgery secondary to impingement syndrome. 3. History of esophageal stricture with dilation. SOCIAL HISTORY Patient lives at home. She does walk pretty regularly. She is a reformed tobacco abuser but denies any alcohol or illicit drug abuse. ALLERGIES Penicillin. HOME MEDICATIONS Include: 1. Gabapentin 300 mg p.o. t.i.d. 2. Mobic 15 mg p.o. daily. 3. Paisley-3 1000 mg b.i.d. 4. Valium 5 mg p.o. b.i.d. 5. Topamax 100 mg p.o. daily. 6. Topamax 200 mg p.o. q.h.s. 7. Coreg 3.125 mg p.o. b.i.d. 8. Vitamin D 1000 units p.o. daily. 9. Plavix 75 mg p.o. daily. 10. Effexor 225 mg p.o. daily. 11. Isosorbide mononitrate ER 30 mg p.o. daily. 12. Protonix 40 mg p.o. q.h.s. 13. Zetia 10 mg o q.h.s. 14. Lipitor 20 mg p.o. q.h.s. 15. Glucophage 500 mg p.o. daily. 16. Nitroglycerin 0.4 mg sublingual p.r.n. for chest pain. 17. Symbicort one puff p.r.n. 18. Estrogen 10 mcg two times a week, Tuesdays and . 19. Hydrocodone and acetaminophen 10/325 one tab p.o. t.i.d. DIAGNOSTIC STUDIES LABORATORY: Troponin less than 0.05, then less than 0.05, less than 0.03. Sodium 143, potassium 4.3, chloride 110, CO2 26, glucose 126, BUN 15, creatinine 0.9, INR is 1, white count 11.8, hemoglobin 13, hematocrit 39.2, platelets are 274. IMAGING: Chest x-ray shows chronic lung changes but no acute processed going on. REVIEW OF SYSTEMS Ten-point review of systems negative except for what was listed in the HPI. PHYSICAL EXAMINATION GENERAL: This is a 46-year-old white female who is alert and oriented x3, in no apparent distress. VITAL SIGNS: Blood pressure is 106/63, temperature 98.3, pulse 60, respirations 16. HEENT: Pupils equal, round and reactive. Oral mucosa is moist. Unit #: [id number] #: [id number] Patient: NORY SALAMANCA NECK: No JVD. No thyromegaly. No lymphadenopathy. No carotid bruits. HEART: S1, S2. No S3, S4. No clicks. No rubs. No murmurs. ABDOMEN: Soft. Bowel sounds positive. Nontender, nondistended. EXTREMITIES: No swelling. NEUROLOGICAL: No neuro deficits noted. IMPRESSION 1. Chest pain. 2. Coronary artery disease with coronary artery bypass graft and filled grafts and then stenting to the left anterior descending. 3. Hypertension. 4. Hyperlipidemia. 5. Diabetes. 6. Left ventricular ejection fraction 45% in March 2016. 7. Obstructive sleep apnea, uses a CPAP. 8. Reformed tobacco abuse. PLAN Will obtain 2D echo and Doppler now to evaluate for any LV function decrease as well as any valvular abnormalities. Will start nitroglycerin paste 1 inch q.6 h. with hold parameters. Spoke with Dr. Liu over the phone as the patient just had a cath in March of this year and medical management was decided. However, patient keeps returning with symptoms that are equivalent to unstable angina as they are worsen with exertion and they feel like her previous heart attack; therefore, the patient may end up having heart cath again to evaluate an LAD area that Dr. Liu saw on the cath images that could be questionable. Dr. Liu is going to check the echocardiogram as soon as the patient has it done to determine if the patient will have a cardiac cath or just may need a stress test prior to her leaving the hospital today. Further recommendations pending echo results as well as other testing. Dictated by Linda Arriaga APRN for Manny Pepper TD: 10/07/2016 15:09 JOB #: [id number] HISTORY AND PHYSICAL Page 1 of 1 X X HISTORY AND PHYSICAL
--- NOTE | ~2016-10-06 | EKG ---
PATIENT: NORY SALAMANCA UNIT #: [id number] Ventricular Rate: 72 BPM Atrial Rate: 72 BPM P-R Interval: 120 ms QRS Duration: 82 ms Q-T Interval: 406 ms QTC Calculation(Bezet): 444 ms P [place]: 0 degrees Calculated R [place]: -2 degrees Calculated T [place]: -12 degrees Diagnosis Line: Normal sinus rhythm Diagnosis Line: T wave abnormality, consider anterior ischemia Diagnosis Line: Abnormal ECG Diagnosis Line: Diagnosis Line: Confirmed by LIZBET PLAZA MD ([id number]) on 10/09/2016 Diagnosis Line: 7:49:11 AM INTERPRETING MD: BOLA YOUSSEF
--- NOTE | ~2016-10-06 | EKG ---
PATIENT: NORY SALAMANCA UNIT #: [id number] Ventricular Rate: 68 BPM Atrial Rate: 68 BPM P-R Interval: 132 ms QRS Duration: 76 ms Q-T Interval: 434 ms QTC Calculation(Bezet): 461 ms P [place]: -5 degrees Calculated T [place]: -20 degrees Diagnosis Line: Normal sinus rhythm Diagnosis Line: T wave abnormality, consider anterior ischemia Diagnosis Line: Prolonged QT Diagnosis Line: Abnormal ECG Diagnosis Line: No previous ECGs available Diagnosis Line: Confirmed by OZIEL JOSEPH MD ([id number]) on Diagnosis Line: 10/08/2016 2:01:59 PM INTERPRETING MD: JAKE YOUSSEF
--- NOTE | ~2016-10-06 | DS ---
Unit #: [id number] #: [id number] Patient: NORY SALAMANCA [id number] [facility]. [place], [place] [address] [id number] MR#: [id number] NAME: NORY SALAMANCA ROOM: 304 Age: 46 Sex: F Admission Date: 10/06/2016 : 1970 Discharge Date: Attending Physician: Kade Joe M.D. Primary Care Physician: Shwetha Lai M.D. DISCHARGE SUMMARY DICTATED FOR Dr. Kade Joe with [facility] Cardiology. HOSPITAL COURSE The patient was admitted to the hospital with complaints of chest pain. The patient described the chest pain as a squeezing sensation with exertion. The patient had just had a cardiac cath done in 03/2016 that showed nonobstructive disease and patent stent to the LAD. Initial workup of the patient included an echo, which showed mild concentric LVH, grade 1 diastolic dysfunction, and an EF of 50% to 55%. The plan was to base the need for any cardiac cath or stress testing off the echo if her LV function had changed. However, after the echo was completed upon further bedside assessment of the patient, she still complained of a squeezing crushing chest pressure every time she got up to go to the bathroom. Therefore, Dr. Liu felt that patient would need to be taken back to the catheterization lab to further evaluate for any coronary ischemia. The patient described the pain as a 10/10 and it felt like her previous heart attack. The patient was taken to the quality control lab tech on 10/07/2016, where she was found to have nonobstructive disease with the left main being normal. LAD had an ostial lesion that was 20%. Proximal stent into the LAD was widely patent. The patient did have severe spasm at the distal stent edge completely resolved with IC nitroglycerin. Left circumflex, no disease. RCA is dominant, no disease. The recommendation post cath was to start the patient on Imdur and Norvasc as well as an ANNAMARIA inhibitor and to stop her beta-anastasia. The patient was still complaining of some pain, therefore GI was consulted for further evaluation. They completed an MRCP due to abnormal LFTs to rule out biliary obstruction. The MRCP showed no evidence of cholelithiasis. No pancreatic divisum and fatty infiltration of the liver, and a 13 mm probable cyst of the lower pole of the left kidney that is new. There was recommendation for renal ultrasound. Renal ultrasound was ordered this morning and the test has not been completed yet. The department has been notified and are planning to complete that today. The patient is still complaining of some chest pain; however, she states the intensity is less than it was when she came in. I discussed with the patient that it may take 3 or 4 weeks to feel full benefit of the medications that she was placed on. The patient verbalized understanding. If the kidney ultrasound is okay and there is nothing acute going on there, the patient is going to be discharged home later today. Follow up with Dr. Joe in 4 weeks and her primary care doctor in 2 weeks. DISCHARGE DIAGNOSES Include; 1. Chest pain, noncardiac in nature. The patient with a coronary spasm Unit #: [id number] #: [id number] Patient: NORY SALAMANCA on catheterization, resolved with IC nitroglycerin. 2. Mild coronary artery disease with a widely patent LAD stent. 3. Left ventricular ejection fraction 50% to 55%. 4. History of coronary artery bypass graft without graft and a subsequent stent to the LAD. 5. Hypertension. 6. Hyperlipidemia. 7. Diabetes. 8. Obstructive sleep apnea, uses CPAP. 9. Reformed tobacco abuse. 10. A 13 mm cyst of the left kidney pole. PHYSICAL EXAMINATION GENERAL: This is a 46-year-old, white female, who is alert and oriented x3, in no apparent distress. VITAL SIGNS: Blood pressure 104/58, temp 97.5, pulse 77, respirations 18. HEENT: Pupils are equal, round, and reactive. Oral mucosa is moist. NECK: No JVD. No thyromegaly. No lymphadenopathy. No carotid bruits. HEART: S1, S2. No S3 or S4. Regular rate and rhythm. No clicks. No rubs, no murmurs. LUNGS: Clear. ABDOMEN: Soft. Bowel sounds positive. Nontender. Nondistended. EXTREMITIES: No swelling noted. NEUROLOGICAL: No neuro deficits noted. DIAGNOSTIC STUDIES LABORATORY RESULTS: Include white count of 12.8, hemoglobin 12.1, hematocrit 37.4, platelets are 290. Sodium 139, potassium 4.8, chloride 108, CO2 of 25, glucose 127, BUN 13, creatinine 0.8, GFR 87.3, AST 22, ALT 35, alkaline phosphatase 154 with admission ALT of 142. Diagnostic testing includes cardiac cath with left main normal, left circumflex normal, LAD 20% at the ostium with a widely patent proximal stent. RCA is a dominant system with no disease. CARDIOVASCULAR STUDIES: Echocardiogram on 10/07/2016 that showed mild concentric LVH, grade 1 diastolic dysfunction, and an EF of 50% to 55%, trace MR, trace TR, trace NV. MRCP without contrast that showed no fatty infiltration in the liver, and a 13 mm probable cyst in the lower pole left kidney. Renal ultrasound is pending. DISCHARGE MEDICATIONS Include albuterol as needed for shortness of breath, Symbicort, gabapentin 300 mg p.o. t.i.d., Topamax 100 mg p.o. in the morning and 200 mg at bedtime, Effexor 225 mg p.o. daily, metformin 500 mg p.o. daily, Zetia 10 mg p.o. at bedtime, Belsomra 10 mg p.o. at bedtime, Valium 5 mg p.o. b.i.d., amlodipine 2.5 mg p.o. daily, Refresh Optive Advanced drops one each eye daily, Yuvafem 10 mcg vaginal two times a week, Lipitor 40 mg p.o. at bedtime, lisinopril 2.5 mg p.o. daily, [place]-3 fish oil 1000 mg twice daily, aspirin 81 mg p.o. daily, meloxicam 15 mg p.o. daily, hydrocodone 10/325 one tab p.o. t.i.d., Plavix 75 mg p.o. daily, Protonix 40 mg p.o. b.i.d., isosorbide mononitrate 60 mg p.o. daily, nitroglycerin 0.4 mg sublingual as needed for chest pain, vitamin D 1000 units p.o. daily. Unit #: [id number] #: [id number] Patient: NORY SALAMANCA DISCHARGE ALLERGIES Include penicillins. BODY AFTER ALLERGIES DISCHARGE PLAN The patient will be discharged home in stable condition and will follow up with Dr. Joe in 4 weeks. The patient will also follow up with her PCP in 2 weeks. The patient should be discharged home pending the completion of the renal ultrasound as long as the results are normal. Dictated by... JERRY Mi TD: 10/09/2016 17:13 JOB #: [id number] DISCHARGE SUMMARY Page 1 of 1 X X DISCHARGE SUMMARY
[~2016-10-06 14:45] MED LIST changes: -GLUCOPHAGE500 MG PO; -ISOSORBIDE MONO30 M1 PO; -NORVASC2.5 MG PO; -REFRESH OPTIVE1 EACH OU; -YUVAFEM10 MCG VAG
[2016-10-06 15:44] LABS: BASOPHIL# 0.1 X10e3 (0-0.3); BASOPHIL% 0.5 % (0-2.5); EOSINOPHIL# 0.2 X10e3 (0-0.7); EOSINOPHIL% 1.8 % (0.0-7.0); HEMATOCRIT 39.2 % (35.0-45.0); LYMPHOCYTE# 3.7 X10e3 (1.0-3.5); LYMPHOCYTE% 31.5 % (17.0-45.0); MEAN CELL VOLUME 93.1 FL (83-96); MEAN CORPUSCULAR HEMOGLOBIN 30.8 PG (28-34); MEAN CORPUSCULAR HGB CONC 33.1 g/dL (30-36); MEAN PLATELET VOLUME 7.8 FL (6.5-11.5); MONOCYTE% 8.6 % (3.0-12.0); NEUTROPHIL# 6.8 X10e3 (1.5-7.1); NEUTROPHIL% 57.6 % (40-75); PLATELET COUNT 274 X10e3 (140-420); RED BLOOD COUNT 4.21 X10e (3.90-5.30); WHITE BLOOD COUNT 11.8 X10e3 (4.0-10.5)
[2016-10-06 15:49] LABS: DIFF IND NO
[2016-10-06 15:57] LABS: POC - CKMB <1.0 ng/mL (0.0-7.9); POC - TROPONIN <0.05 ng/mL (<=0.05)
[2016-10-06 16:06] LABS: ALBUMIN SERUM 4.1 g/dL (3.5-5.0); ALKALINE PHOSPHATASE 172 U/L (32-92); ALT (SGPT) 42 U/L (10-40); AST (SGOT) 28 U/L (10-42); BILIRUBIN,TOTAL 0.4 mg/dL (0.2-2.0); BLOOD UREA NITROGEN 12 mg/dL (9-23); CALCIUM SERUM 9.2 mg/dL (8.4-10.2); CARBON DIOXIDE 24 mmol/L (22-31); CHLORIDE 112 mmol/L (100-111); CREATININE SERUM 0.6 mg/dL (0.6-1.4); GLOM FILT RATE Estimated 107.8 mL/min (>60); GLUCOSE FASTING 128 mg/dL (70-110); POTASSIUM 3.8 mmol/L (3.5-5.1); PROTEIN TOTAL SERUM 7.2 g/dL (6.0-8.3); SODIUM 143 mmol/L (135-145)
[2016-10-06 16:13] LABS: BILIRUBIN, DIRECT <0.1 mg/dL (0.0-0.2); BILIRUBIN,INDIRECT 0.3 mg/dL (0.0-0.9)
[2016-10-06 16:33] LABS: PARTIAL THROMBOPLASTIN TIME 24.3 SECONDS (23.5-31.3); PROTHROMBIN TIME (PATIENT) 10.7 SECONDS (10.0-11.7)
[2016-10-06] MEDS ORDERED: OMEGA 3 1,0001 EACH PO (17:14)
[2016-10-06] MEDS ORDERED: MOBIC PO (17:14)
[2016-10-06] MEDS ORDERED: GABAPENTIN300 M2 PO (17:14)
[2016-10-06] MEDS ORDERED: DIAZEPAM PO (17:15)
[2016-10-06] MEDS ORDERED: TOPIRAMATE100 MG PO ×2 (17:15)
[2016-10-06] MEDS ORDERED: CLOPIDOGREL75 MG PO (17:16)
[2016-10-06] MEDS ORDERED: COREG3.125 MG PO (17:16)
[2016-10-06] MEDS ORDERED: VENLAFAXINE HC225 MG PO (17:16)
[2016-10-06] MEDS ORDERED: VITAMIN D1000 UNIT PO (17:16)
[2016-10-06] MEDS ORDERED: ISOSORBIDE MONO30 M1 PO (17:17)
[2016-10-06] MEDS ORDERED: PANTOPRAZOLE SO40 MG PO (17:17)
[2016-10-06] MEDS ORDERED: EZETIMIBE10 MG PO (17:17)
[2016-10-06] MEDS ORDERED: LIPITOR20 MG PO (17:18)
[2016-10-06] MEDS ORDERED: GLUCOPHAGE500 MG PO (17:18)
[2016-10-06] MEDS ORDERED: BELSOMRA10 MG PO (17:18)
[2016-10-06] MEDS ORDERED: REFRESH OPTIVE1 EACH OU (17:19)
[2016-10-06] MEDS ORDERED: NITROGLYGERIN0.4 MG SL (17:19)
[2016-10-06] MEDS ORDERED: ALBUTEROL 0.5ML INH (17:19)
[2016-10-06] MEDS ORDERED: SYMBICORT INH (17:19)
[2016-10-06] MEDS ORDERED: YUVAFEM10 MCG VAG (17:21)
[2016-10-06] MEDS ORDERED: HYDROCODON-ACE1 EAC5 PO (17:21)
[2016-10-06 17:39] LABS: POC - CKMB <1.0 ng/mL (0.0-7.9); POC - TROPONIN <0.05 ng/mL (<=0.05)
[2016-10-07 05:18] LABS: BUN/CREATININE RATIO 16.66; CREATININE SERUM 0.9 mg/dL (0.6-1.4); GLOM FILT RATE Estimated 75.7 mL/min (>60); POTASSIUM 4.3 mmol/L (3.5-5.1)
[2016-10-08 05:23] LABS: HEMATOCRIT 37.2 % (35.0-45.0); MEAN CELL VOLUME 94.1 FL (83-96); MEAN CORPUSCULAR HEMOGLOBIN 30.2 PG (28-34); MEAN CORPUSCULAR HGB CONC 32.1 g/dL (30-36); RED BLOOD COUNT 3.96 X10e (3.90-5.30); RED CELL DISTRIBUTION WIDTH 16.2 % (11.0-15.5); WHITE BLOOD COUNT 14.3 X10e3 (4.0-10.5)
[2016-10-08 06:24] LABS: BUN/CREATININE RATIO 15.55; CALCIUM SERUM 8.9 mg/dL (8.4-10.2); CREATININE SERUM 0.9 mg/dL (0.6-1.4); GLOM FILT RATE Estimated 75.7 mL/min (>60); POTASSIUM 4.1 mmol/L (3.5-5.1)
[2016-10-09 05:21] LABS: HEMATOCRIT 37.4 % (35.0-45.0); HEMOGLOBIN 12.1 gm/dL (12.0-16.0); MEAN CELL VOLUME 93.6 FL (83-96); MEAN CORPUSCULAR HEMOGLOBIN 30.3 PG (28-34); MEAN CORPUSCULAR HGB CONC 32.4 g/dL (30-36); MEAN PLATELET VOLUME 8.1 FL (6.5-11.5); RED BLOOD COUNT 3.99 X10e (3.90-5.30); RED CELL DISTRIBUTION WIDTH 16.7 % (11.0-15.5); WHITE BLOOD COUNT 12.8 X10e3 (4.0-10.5)
[2016-10-09 06:19] LABS: ALBUMIN SERUM 3.9 g/dL (3.5-5.0); BILIRUBIN,TOTAL 0.2 mg/dL (0.2-2.0); BUN/CREATININE RATIO 16.25; CALCIUM SERUM 8.9 mg/dL (8.4-10.2); CREATININE SERUM 0.8 mg/dL (0.6-1.4); GLOM FILT RATE Estimated 87.3 mL/min (>60); POTASSIUM 4.8 mmol/L (3.5-5.1); PROTEIN TOTAL SERUM 7.1 g/dL (6.0-8.3)
[2016-10-10] MEDS ORDERED: NORVASC2.5 MG PO (10:06)
[2016-10-10] MEDS ORDERED: ZESTRIL2.5 M1 PO (10:08)
[2016-10-10] MEDS ORDERED: ASPIRIN81 MG PO (10:08)
== END 2016-10-10 19:00 | disposition home or self-care (01) | DRG 287 ==
LOC: CED 14:45 → CEDOF 17:05 → CED 17:29 → C3A PCU 20:00 → CEDOF 20:00 → C3A PCU 10-10 19:00
PROVIDERS: Emergency Medicine; Internal Medicine
PROC: 4A023N7 Measurement of Cardiac Sampling and Pressure, Left Heart, Percutaneous Approach (ICD-10-PCS; principal; 2016-10-07)
PROC: B215YZZ Fluoroscopy of Left Heart using Other Contrast (ICD-10-PCS; 2016-10-07)
PROC: B211YZZ Fluoroscopy of Multiple Coronary Arteries using Other Contrast (ICD-10-PCS; 2016-10-07)
PROC: B24BZZZ Ultrasonography of Heart with Aorta (ICD-10-PCS; 2016-10-07)
DX: R07.89 Other chest pain (principal); N28.1 Cyst of kidney, acquired; I10 Essential (primary) hypertension; I25.10 Atherosclerotic heart disease of native coronary artery without angina pectoris; E78.5 Hyperlipidemia, unspecified; E11.9 Type 2 diabetes mellitus without complications; Z87.891 Personal history of nicotine dependence; G47.33 Obstructive sleep apnea (adult) (pediatric); K21.9 Gastro-esophageal reflux disease without esophagitis; J44.9 Chronic obstructive pulmonary disease, unspecified; I25.2 Old myocardial infarction; Z88.0 Allergy status to penicillin; Z95.1 Presence of aortocoronary bypass graft
CPT/HCPCS: 36415; 71010; 74181; 76770; 80048; 80053; 80076; 82553; 82947; 83735; 84484; 85025; 85027; 85610; 85730; 93005; 93306; 94640; 94664; 94760; 99285; C1760; C1769; C9113; J1644; J1815; J2250; J2405; J3010